=== PATIENT | male | born 1995 | race Caucasian/White ===

== ENCOUNTER 2020-12-24 22:35 | Emergency (ER) | payer OTHER, SELFPAY ==
[2020-12-24 22:36] VITALS: BP 142/84; PULSE 120; RESP 18; TEMP 36.6; O2SAT 99; BMI 32.1
--- NOTE | 2020-12-24 22:55 | CT_ITS ---
STUDY: CT SOFT TISSUE NECK WITHOUT CONTRAST REASON FOR EXAM: Male, 25 years old. dysphagia RADIATION DOSAGE (If Supplied By Facility): CTDIvol = ( 18.91 ) mGy, DLP = ( 609.55 ) mGycm TECHNIQUE: The patient was scanned in a multi-detector CT scanner. High resolution transaxial imaging was performed without the administration of intravenous contrast material. Sagittal and coronal images were reconstructed. Individualized dose optimization techniques were used for this CT. COMPARISON: None. FINDINGS: Exam is very limited by the absence of IV contrast, which is a significant limitation when evaluating the soft tissues of the neck. No gross acute abnormality. Normal bilateral parotid glands. Normal bilateral bread panner spaces. Normal bilateral parapharyngeal spaces. Normal bilateral carotid spaces. Normal bilateral sublingual and submandibular glands and spaces. Normal visualized nasopharynx. Normal retropharyngeal space. Normal perivertebral space. Normal visualized bilateral faucial tonsils. The visualized tongue, tongue base and oropharynx are normal. The visualized cervical lymph nodes (levels I-) are within normal size limits, and maintain normal morphology. There is no demonstrated solid or cystic mass lesion. Normal epiglottis, bilateral vallecula and hypopharynx. The pre-epiglottic and paraglottic adipose spaces are normal. Normal visualized bilateral piriform sinuses, aryepiglottic folds, vocal cords, and arytenoid-cricoid articulations. Normal subglottic trachea. Normal bilateral lobes of the thyroid gland. Normal visualized pulmonary apices. Normal visualized paranasal sinuses. Normal visualized cervical spine. CT/Soft Tissue Neck without Contr IMPRESSION: No gross acute amount although the study is significantly limited by the absence of IV contrast. Electronically Signed: Thee Trinidad MD at 23:46 EDT , Service support ,
--- NOTE | 2020-12-24 22:56 | EDS_ITS ---
HPI History of Present Illness Chief Complaint: Foreign Body Informant: patient Onset/Context/Timing Onset: Today Current Severity: Moderate Maximum Severity: Moderate Narrative Narrative: Patient present secondary to foreign body sensation in his throat. Patient states he is in a campfire tonight. He picked up a glass of water and when taking a drink felt there may have been a bug or something in the liquid. He states he felt like he swallowed it. He got up and went and vomited. He still has foreign body sensation and points to the [place] region of his throat. He does not feel he got stung by anything. [facility] Medical History Asthma High cholesterol HTN (hypertension) Home Medications albuterol sulfate 1 - 2 puff INHALATION Q4H PRN PRN 12/24/20 [History Last Taken Unknown] atorvastatin [Lipitor] 40 mg PO QHS 12/24/20 [History Last Taken Unknown] fluticasone propionate [Flovent HFA] 1 puff INHALATION DAILY 12/24/20 [History Last Taken Unknown] lisinopril [Zestril] 5 mg PO DAILY 12/24/20 [History Last Taken Unknown] Allergy/AdvReac Type Severity Reaction Status Date / Time Penicillins Allergy Rash Verified 12/24/20 22:39 Social History Smoking Status: Never smoker ROS ROS ED Constitutional Constitutional ED: Denies chills or fever(s) Eyes Eyes: Denies change in vision ENT ENT ED: Reports other Details: Foreign body sensation in throat Cardiovascular Cardiovascular: Denies chest pain Respiratory/Chest Respiratory/Chest: Denies cough or dyspnea Gastrointestinal Gastrointestinal: Denies abdominal pain, diarrhea, nausea or vomiting Genitourinary Genitourinary ED: Denies dysuria Musculoskeletal Musculoskeletal: Denies back pain Integumentary Denies rash Neurologic Neurologic: Denies headache(s) or weakness Psychiatric Psychiatric: Denies anxiety or depression Endocrine Endocrinology: Denies polydipsia or polyuria Allergic/Immunologic Allergic/Immunologic ED: Denies urticaria EXAM Physical Exam Const Vital Signs: 12/24/20 22:36 12/24/20 22:47 Temperature 97.8 F Temperature Source Temporal Pulse Rate 120 H Respiratory Rate 18 Respiratory Effort Normal Respiratory Pattern Normal Blood Pressure 142/84 H Blood Pressure Mean 103 Pulse Ox 99 Oxygen Delivery Method Room Air Positive well nourished and well developed General Appearance ED: well developed HEENT Reports moist mucous membranes HEENT Narrative: Posterior pharynx unremarkable. Tolerating secretions and has a strong voice. Eyes PERRL and EOMs intact bilaterally Neck supple Chest Wall inspection of chest normal and palpation of chest normal Resp normal respiratory effort and clear to auscultation bilaterally Cardio regular rate and regular rhythm GI normal to inspection, nondistended, normoactive bowel sounds Extremity normal to inspection Neuro oriented x3 Sensorium / Orientation: alert Psych mental status grossly normal Skin no rashes or lesions noted MDM MDM MDM Narrative Medical decision making narrative: Patient was given a dose of prednisone and Benadryl due to concern for possible allergic reaction causing a foreign body sensation. CT soft tissue neck is obtained. Radiography Diagnostic Testing: Radiology Impression Soft Tissue Neck CT 12/24/20 22:55 IMPRESSION: No gross acute amount although the study is significantly limited by the absence of IV contrast. Electronically Signed: Thee Trinidad MD at 23:46 EDT , Service support , Treatment and Re-Evaluation Comments:: CT scan is unremarkable. No evidence of any airway compromise. Patient is given GI cocktail to help with foreign body sensation and on repeat eval does feel improved. He will be discharged home with family at this time. Discharge Plan Triage Chief Complaint: Foreign Body ED Provider: Audrey Pisano Dx/Rx/DC Orders Clinical Impression: Foreign body sensation in throat Instructions: When You Have a Sore Throat Prescriptions: No Action atorvastatin [Lipitor] 40 mg tablet 40 mg PO QHS RF: 0 lisinopril [Zestril] 5 mg tablet 5 mg PO DAILY RF: 0 albuterol sulfate 90 mcg/actuation HFA aerosol inhaler 1 - 2 puff INHALATION Q4H PRN PRN (Reason: Wheezing) RF: 0 Flovent HFA 110 mcg/actuation HFA aerosol inhaler 1 puff INHALATION DAILY RF: 0 Primary Care Provider: Gertrudis Frank Referrals: Gertrudis Frank MD [Primary Care Provider] - 3-5 Days if not improving Activity Restrictions/Additional Instructions: Your CT imaging tonight did not reveal any airway swelling or foreign body. As discussed I believe you likely had a scratch or abrasion in the back of your throat causing the foreign body sensation. Disposition Disposition: Home, Self Care
[2020-12-24] MEDS: predniSONE 20 MG Tablet 60 MG PO (23:06)
[2020-12-24] MEDS: DiphenhydrAMINE 25 MG Capsule 50 MG PO (23:06)
[2020-12-25] MEDS: Mag Hydrox/Al Hydrox/Simeth 30 ML UDC PO (00:15)
[2020-12-25 01:11] VITALS: BP 116/78; PULSE 95; RESP 18; O2SAT 99
== END 2020-12-25 01:11 | disposition home or self-care (01) ==
PROVIDERS: Emergency Provider Emergency Medicine; PCP Internal Medicine
DX: R09.89 Other specified symptoms and signs involving the circulatory and respiratory systems (principal); J45.909 Unspecified asthma, uncomplicated; E78.00 Pure hypercholesterolemia, unspecified; I10 Essential (primary) hypertension; Z79.51 Long term (current) use of inhaled steroids; Z79.899 Other long term (current) drug therapy
CPT/HCPCS: 70490; 99283